=== PATIENT | male | born 1980 | race Caucasian/White ===

== ENCOUNTER 2018-10-15 04:00 | Emergency (ER) | payer OTHER ==
[~2018-10-15] VITALS: Ht 170.2 cm; Wt 73.5 kg
[2018-10-15 04:04] VITALS: Ht 170.2 cm; Wt 73.5 kg
[2018-10-15 06:18] VITALS: BP 125/70
== END 2018-10-15 06:18 | disposition home or self-care (01) ==
LOC: ED 04:00
DX: J06.9 Acute upper respiratory infection, unspecified (principal); F41.9 Anxiety disorder, unspecified
CPT/HCPCS: Q0092

== ENCOUNTER 2019-09-11 17:29 | Emergency (ER) | payer OTHER ==
[~2019-09-11] VITALS: Ht 170.2 cm; Wt 71.7 kg
[2019-09-11 17:34] VITALS: Ht 170.2 cm; Wt 71.7 kg
[2019-09-11 19:11] VITALS: BP 126/76
== END 2019-09-11 19:11 | disposition home or self-care (01) ==
LOC: ED 17:29
DX: J20.9 Acute bronchitis, unspecified (principal)
CPT/HCPCS: 87804; Q0092

== ENCOUNTER 2020-01-30 11:10 | Emergency (ER) | payer OTHER ==
[~2020-01-30] VITALS: Ht 170.2 cm; Wt 64.0 kg
[2020-01-30 11:23] VITALS: Ht 170.2 cm; Wt 64.0 kg
[2020-01-30 16:17] VITALS: BP 131/99
== END 2020-01-30 16:17 | disposition home or self-care (01) ==
LOC: ED 11:10
DX: S20.212A Contusion of left front wall of thorax, initial encounter (principal); S20.211A Contusion of right front wall of thorax, initial encounter; Y04.8XXA Assault by other bodily force, initial encounter; Y93.89 Activity, other specified; Y92.89 Other specified places as the place of occurrence of the external cause; Y99.8 Other external cause status